=== PATIENT | male | born 1965 | race Caucasian/White ===

== ENCOUNTER 2022-06-23 15:10 | Observation (INO) | payer OTHER ==
[2022-06-23 16:09] LABS: Absolute Neutrophil Ct (ANC) 8.88 x10^3/uL (1.4-6.9); Basophil (Absolute #) 0.07 x10^3/uL (0-0.4); Eosinophil % 2.3 % (0.00-5.0); Eosinophil (Absolute #) 0.27 x10^3/uL (0-0.5); Hematocrit 48.7 % (42-50); Hemoglobin 15.7 g/dL (12.5-18.0); Lymphocytes % 12.9 % (24.0-44.0); Mean Cell Volume 95.3 fL (78-100); Mean Corpuscular Hemoglobin 30.7 pg (26-32); Mean Corpuscular Hgb Concent. 32.2 g/dL (32-36); Mean Platelet Volume 9.7 fL (7.5-11.0); Monocyte (Absolute #) 0.89 x10^3/uL (0.0-1.3); Monocytes % 7.6 % (0.0-12.0); Neutrophil % 76.3 % (36.0-66.0); Platelet Count 268 x10^3/uL (150-450); Red Blood Count 5.11 x10^6/uL (4.1-5.6); Red Cell Distribution Width 12.7 % (11.5-14.0); White Blood Count 11.6 x10^3/uL (4.0-10.5)
[2022-06-23] MEDS ORDERED: Hydromorphone 1 mg/ml Injection IV PRN (16:16)
[2022-06-23 16:19] LABS: ALBUMIN 4.6 g/dL (3.5-5.0); ALKALINE PHOSPHATASE 130 U/L (38-126); ANION GAP 12.5 MEQ/L (5-15); BLOOD UREA NITROGEN 17 mg/dL (9-20); CHLORIDE 98 mmol/L (98-107); Calcium 9.9 mg/dL (8.4-10.2); Carbon Dioxide 31 mmol/L (22-30); Creatinine 1 0.94 mg/dL (0.66-1.25); EST GLOMERULAR FILTRATION RATE > 60.0 ML/MIN; Glucose 102 mg/dL (74-106); Potassium 4.5 mmol/L (3.5-5.1); SGOT/AST 38 U/L (17-59); SGPT/ALT 41 U/L (0-50); SODIUM 136 mmol/L (137-145); Total Protein 9.1 g/dL (6.3-8.2)
[2022-06-23] MEDS ORDERED: TYLENOL 325 MG ONE (16:22)
[2022-06-23] MEDS: TYLENOL 325 MG PO PRN ×2 (16:25→20:12)
--- NOTE | 2022-06-23 18:39 | XRAY ---
Indication: Abscess. Sagittal, coronal, and axial MRI left mid lower leg performed without contrast using T1, T2, and STIR sequences. Cutaneous marker placed over region of interest. Comparison: None Anterior cutaneous marker is seen mid lower leg. There is underlying subcutaneous fluid collection measuring at least 1.8 x 3.8 x 4.4 cm presumed clinically reported abscess. Mild surrounding cutaneous and subcutaneous soft tissue swelling/edema presumed reactive. Lack of contrast precludes further characterization. Deep soft tissues and muscles are negative for focal solid/cystic mass or abnormal fluid collection. No acute fracture, suspicious bony lesions, osseous destructive process, or abnormal bone marrow signal. Impression: Anterior subcutaneous fluid collection with surrounding soft tissue swelling/edema presumed clinically reported abscess. No abnormal bony MRI abnormalities.
[2022-06-23] MEDS: PIPERACILLIN/TAZOBACTAM 3.375 GM in Sodium Chloride 100ML MINI-BAG PLUS 100 ML IV SCH ×2 (18:41→23:11)
[2022-06-23] MEDS: VANCOMYCIN 1.25 GM/250 ML BAG 1.25 GM/250 ML PIGGYBACK IV SCH (19:44)
[2022-06-23] MEDS: Zofran 4 MG/2 ML VIAL IV PRN (21:43)
--- NOTE | 2022-06-23 21:57 | PCM.HP ---
History of Present Illness - Chief Complaint Chief Complaint: LEFT LEG CELLULITIS History of Present Illness: is a 57 year old male patient of mine seen in clinic today for LLE cellulitis with abcess formation. Patient was referred to Podiatry Dr Brock who plans I&D proceedure in the morning. Over the patient was started on Bactrim then Clindamycin.States no improvement on Bactrim but started to improve on Clindamycin.Denies injury. Works farming row crops and cattle. PMHx - HTN ,Obesity. - Review of Systems Constitutional: No Symptoms Eyes: No Symptoms Ears, Nose, & Throat: No Symptoms Respiratory: No Symptoms Cardiac: No Symptoms Abdominal/Gastrointestinal: No Symptoms Genitourinary Symptoms: No Symptoms Musculoskeletal: Other (LLE redness and pain) Skin: Cellulitis (LLE) Neurological: No Symptoms Psychological: No Symptoms Endocrine: No Symptoms Hematologic/Lymphatic: No Symptoms Medications & Allergies Home Medications: Home Medication List Aspirin EC 81 mg [Ecotrin 81 mg] 81 mg PO DAILY 06/23/22 [History Confirmed 06/23/22] Lisinopril 20 mg [Zestril 20 MG] 20 mg PO BID 06/23/22 [History Confirmed 06/23/22] Allergies/Adverse Reactions: Allergies Allergy/AdvReac Type Severity Reaction Status Date / Time No Known Allergies Allergy Verified 06/23/22 23:19 - Past Medical History Neurological History: No Pertinent History ENT History: Cataracts Cardiac History: No Pertinent History Respiratory History: No Pertinent History Endocrine Medical History: No Pertinent History Musculoskelatal History: No Pertinent History GI Medical History: No Pertinent History History: No Pertinent History Pyscho-Social History: No Pertinent History Male Reproductive Disorders: No Pertinent History - Past Surgical History Past Surgical History: Yes Neuro Surgical History: No Pertinent History Cardiac History: No Pertinent History Respiratory Surgery: No Pertinent History GI Surgical History: No Pertinent History Genitourinary Surgical Hx: No Pertinent History Musculskeletal Surgical Hx: No Pertinent History Male Surgical History: No Pertinent History Other Surgical History: MUSCLE REATTCHMENT SX LEFT ARM 2001 - Social History Smoking Status: Never smoker Exposure to second hand smoke: No Alcohol: None Drug Use: none - Physical Exam Vital Signs: Vital Signs - 24 hr Temp Pulse Resp BP Pulse Ox 06/23/22 19:34 99.3 F 103 H 19 144/68 93 L 06/23/22 16:00 97.8 F 87 185/93 96 06/23/22 15:28 97.8 F 87 185/93 96 06/23/22 15:19 97.8 F 87 19 185/ 96 General Appearance: mild distress (LLE pain) Neurologic Exam: alert, oriented x 3, cooperative, normal mood/affect Eye Exam: eyes nml inspection Ears, Nose, Throat Exam: normal ENT inspection Neck Exam: normal inspection Respiratory Exam: normal breath sounds Gastrointestinal/Abdomen Exam: soft, No tenderness Rectal Exam: not done Back Exam: normal inspection Extremity Exam: tenderness (LLE mid tibia with redness and heat with soft fluctuant center,no drainage-see podiatry note) Skin Exam: warm, dry Wound Assessment: Skin/Wound Assessment Wound/Incision Assessment Start: 06/23/22 16:11 Text: Status: Active Freq: Q6H Protocol: Document 06/23/22 16:11 RB (Rec: 06/23/22 17:00 RB [id number]) Wound/Incision Assessment Left Lower Knee Wound Assessment Admission Wound Stage Non Pressure Wound Dressing Status Dry & Intact Drainage Amount None Drainage Odor None/Absent Secondary Dressing Elastic Bandage Comment WRAPPED PER LUCIANO PRIOR TO ADMISSION Wound Photo Photo Taken No Results - Labs Lab/Micro Results: Lab Results-Last 24 Hours 06/23/22 06/23/22 06/23/22 Range/Units 13:50 13:50 15:35 WBC 11.6 H (4.0-10.5) x10^3/uL RBC 5.11 (4.1-5.6) x10^6/uL Hgb 15.7 (12.5-18.0) g/dL Hct 48.7 (42-50) % MCV 95.3 (78-100) fL MCH 30.7 (26-32) pg MCHC 32.2 (32-36) g/dL RDW 12.7 (11.5-14.0) % Plt Count 268 (150-450) x10^3/uL MPV 9.7 (7.5-11.0) fL Gran % 76.3 H (36.0-66.0) % Immature Gran % (Auto) 0.3 (0.00-0.4) % Nucleat RBC Rel Count 0.0 (0.00-0.1) % Eos # (Auto) 0.27 (0-0.5) x10^3/uL Immature Gran # (Auto) 0.03 (0.00-0.03) x10^3u/L Absolute Lymphs (auto) 1.50 (1.0-4.6) x10^3/uL Absolute Monos (auto) 0.89 (0.0-1.3) x10^3/uL Absolute Nucleated RBC 0.00 (0.00-0.01) x10^3u/L Lymphocytes % 12.9 L (24.0-44.0) % Monocytes % 7.6 (0.0-12.0) % Eosinophils % 2.3 (0.00-5.0) % Basophils % 0.6 (0.0-0.4) % Absolute Granulocytes 8.88 H (1.4-6.9) x10^3/uL Basophils # 0.07 (0-0.4) x10^3/uL ESR 41 H (0-15) mm/hr Sodium 136 L (137-145) mmol/L Potassium 4.5 (3.5-5.1) mmol/L Chloride 98 (98-107) mmol/L Carbon Dioxide 31 H (22-30) mmol/L Anion Gap 12.5 (5-15) MEQ/L BUN 17 (9-20) mg/dL Creatinine 0.94 (0.66-1.25) mg/dL Estimated GFR > 60.0 ML/MIN Glucose 102 (74-106) mg/dL Lactic Acid (0.4-2.0) Calcium 9.9 (8.4-10.2) mg/dL Total Bilirubin 0.80 (0.2-1.3) mg/dL AST 38 (17-59) U/L ALT 41 (0-50) U/L Alkaline Phosphatase 130 H (38-126) U/L Serum Total Protein 9.1 H (6.3-8.2) g/dL Albumin 4.6 (3.5-5.0) g/dL // Range/Units 15:50 WBC (4.0-10.5) x10^3/uL RBC (4.1-5.6) x10^6/uL Hgb (12.5-18.0) g/dL Hct (42-50) % MCV (78-100) fL MCH (26-32) pg MCHC (32-36) g/dL RDW (11.5-14.0) % Plt Count (150-450) x10^3/uL MPV (7.5-11.0) fL Gran % (36.0-66.0) % Immature Gran % (Auto) (0.00-0.4) % Nucleat RBC Rel Count (0.00-0.1) % Eos # (Auto) (0-0.5) x10^3/uL Immature Gran # (Auto) (0.00-0.03) x10^3u/L Absolute Lymphs (auto) (1.0-4.6) x10^3/uL Absolute Monos (auto) (0.0-1.3) x10^3/uL Absolute Nucleated RBC (0.00-0.01) x10^3u/L Lymphocytes % (24.0-44.0) % Monocytes % (0.0-12.0) % Eosinophils % (0.00-5.0) % Basophils % (0.0-0.4) % Absolute Granulocytes (1.4-6.9) x10^3/uL Basophils # (0-0.4) x10^3/uL ESR (0-15) mm/hr Sodium (137-145) mmol/L Potassium (3.5-5.1) mmol/L Chloride (98-107) mmol/L Carbon Dioxide (22-30) mmol/L Anion Gap (5-15) MEQ/L BUN (9-20) mg/dL Creatinine (0.66-1.25) mg/dL Estimated GFR ML/MIN Glucose (74-106) mg/dL Lactic Acid 1.6 (0.4-2.0) Calcium (8.4-10.2) mg/dL Total Bilirubin (0.2-1.3) mg/dL AST (17-59) U/L ALT (0-50) U/L Alkaline Phosphatase (38-126) U/L Serum Total Protein (6.3-8.2) g/dL Albumin (3.5-5.0) g/dL - Radiology Impressions Radiology Exams & Impressions: Radiology Procedures Category Date Time Status MRI LOWER EXT W/O CONTRAST [MRI] Stat Exams 06/23/22 15:36 Completed Assessment/Plan (1) Cellulitis of leg without foot, left Current Visit: Yes Status: Acute Code(s): L03.116 - CELLULITIS OF LEFT LOWER LIMB (2) HTN (hypertension) Current Visit: Yes Status: Chronic Code(s): I10 - ESSENTIAL (PRIMARY) HYPERTENSION
[2022-06-23] MEDS: Zestril 20 MG PO SCH (22:20)
[2022-06-24] MEDS: TYLENOL 325 MG PO PRN ×3 (00:17→11:47)
[2022-06-24] MEDS: VANCOMYCIN 1.25 GM/250 ML BAG 1.25 GM/250 ML PIGGYBACK IV SCH ×3 (04:08→19:52)
[2022-06-24] MEDS: Zofran 4 MG/2 ML VIAL IV PRN (04:09)
[2022-06-24] MEDS: PIPERACILLIN/TAZOBACTAM 3.375 GM in Sodium Chloride 100ML MINI-BAG PLUS 100 ML IV SCH ×4 (05:40→23:30)
[2022-06-24 08:43] LABS: ANION GAP 10.2 MEQ/L (5-15); BLOOD UREA NITROGEN 23 mg/dL (9-20); CHLORIDE 99 mmol/L (98-107); Calcium 8.6 mg/dL (8.4-10.2); Carbon Dioxide 28 mmol/L (22-30); Creatinine 1 1.14 mg/dL (0.66-1.25); EST GLOMERULAR FILTRATION RATE > 60.0 ML/MIN; Glucose 108 mg/dL (74-106); Potassium 4.4 mmol/L (3.5-5.1); SODIUM 133 mmol/L (137-145)
[2022-06-24] MEDS ORDERED: TENIVAC VIAL IM ONE (09:32)
[2022-06-24] MEDS ORDERED: FLUZONE QUAD 2022-2023 SYRINGE IM ONE (10:00)
[2022-06-24] MEDS: Zestril 20 MG PO SCH ×2 (11:46→22:14)
[2022-06-24] MEDS: Sodium Chloride 0.9% 1000 ML 1,000 ML IV SCH (11:47)
[2022-06-24] MEDS ORDERED: Zofran 4 MG/2 ML VIAL ONE ×2 (15:28→15:34)
[2022-06-24] MEDS ORDERED: Xopenex 1.25 MG/0.5 ML UD NEBULE IH SCH (15:30)
[2022-06-24] MEDS ORDERED: SOD CITRATE-CITRIC ACID SOLN PO ONE (15:30)
[2022-06-24] MEDS ORDERED: Lactated Ringers 1,000 ML IV SCH (15:30)
[2022-06-24] MEDS ORDERED: Versed 2 MG/2 ML Injection IV SCH (15:30)
[2022-06-24] MEDS ORDERED: Transderm Scop 1.5MG Patch TOP PRN (15:30)
[2022-06-24] MEDS ORDERED: Pepcid 20 MG VIAL IV SCH (15:30)
[2022-06-24] MEDS ORDERED: Reglan 10 MG/2 ML IV SCH (15:30)
[2022-06-24] MEDS ORDERED: SUBLIMAZE 100 MCG/2 ML ONE ×2 (15:33→17:16)
[2022-06-24] MEDS ORDERED: Decadron 4 MG INJ ONE (15:34)
[2022-06-24] MEDS ORDERED: TORAdol 30 mg Injection ONE (15:34)
[2022-06-24] MEDS ORDERED: DIPRIVAN 200 MG/20 ML IV ONE ×2 (15:36→15:47)
[2022-06-24] MEDS ORDERED: Quelicin Fliptop 200 MG/10 ML ONE (15:39)
[2022-06-24] MEDS ORDERED: Pre-Attached Lta Kit TP ONE (15:51)
[2022-06-24] MEDS ORDERED: Versed 2 MG/2 ML Injection ONE (15:56)
[2022-06-24] MEDS ORDERED: Ephedrine Sulfate 50 MG/ML ONE (16:15)
[2022-06-24] MEDS ORDERED: PHENYLEPHRINE HCL ONE (16:17)
--- NOTE | 2022-06-24 17:05 | PCM.NOTE ---
Podiatry Post-Op Plan Podiatry Post-Op Plan: Podiatry Post-Op Plan Post-operative plan is as follows: ANTIBIOTICS: Vancomycin 1.25g q 12 hours zosyn 3.375 g q 8 hours for now. Preliminary cultures demonstrating Gram positive bacteria will await culture and sensitivity PAIN CONTROL: Rosebud 5/325mg q4h moderate pain. Dilaudad .5 q4h severe pain. VTE PROPHYLAXIS: 325 mg PO aspirin daily. DRESSINGS: Dressing to remain clean and dry. Reinforce with Kerlix/ALEJANDRO as necessary. ACTIVITY: Full weight bearing to tolerance. elevate extremities THERAPIES: Incentive Spirometry. PLACEMENT: d/c to home
[2022-06-24] MEDS: NORCO 7.5/325 MG TAB PO PRN ×2 (18:35→23:21)
[2022-06-25] MEDS: VANCOMYCIN 1.25 GM/250 ML BAG 1.25 GM/250 ML PIGGYBACK IV SCH ×3 (04:57→19:53)
[2022-06-25] MEDS: PIPERACILLIN/TAZOBACTAM 3.375 GM in Sodium Chloride 100ML MINI-BAG PLUS 100 ML IV SCH ×2 (05:58→06:25)
[2022-06-25] MEDS: NORCO 7.5/325 MG TAB PO PRN ×2 (07:54→20:05)
[2022-06-25] MEDS ORDERED: GENTAMICIN SULFATE 0.1% CREAM TP SCH (08:30)
--- NOTE | 2022-06-25 09:10 | OP ---
SURGERY DATE/TIME: 06/24/2022 1558 PREOPERATIVE DIAGNOSES: 1) Abscess left leg. 2) Pain left leg. POSTOPERATIVE DIAGNOSES: 1) Abscess left leg. 2) Pain left leg. PROCEDURE: Incision and drainage with bone debridement to the level of tibia left ankle. SURGEON: James Mckinnon DPM. NEEDLE LOOM TENDER: None. ANESTHESIA: General. HEMOSTASIS: Pressure dressing. ESTIMATED BLOOD LOSS: Approximately 10 cc. MATERIALS: 1,000 ml Bactisure, 3-0 Nylon and 0.25 inch Iodoform packing. INJECTABLES: See anesthesia report for details. INDICATION FOR SURGERY: Ramesh is a very pleasant 57-year-old man who presented to my clinic yesterday with concerns of cellulitic changes as well as abscess developing to the anterior aspect of the left leg. The patient indicated the symptoms started approximately a week ago and failed outpatient therapy. The patient remembers very little about the start of this however he does indicate that he had been bitten by a spider within the last week which may have started this whole process. In this case a culture was obtained with a simple I&D yesterday in my office which demonstrated some growth of gram-positive bacteria. Since then the patient has been admitted to the floor and started on antibiotics Vancomycin and Zosyn and is planned for incision and drainage today. MRI was obtained yesterday demonstrating a lesion approximately 4 x 3 x 2 cm as a fluid filled collection that did not go past the muscle layer. I agreed with the radiologist read at that time. It is with that we decided to proceed with further evacuation of the abscess of the anterior aspect of the left leg. The patient understands all risks, complications and benefits of surgical intervention including but not limited to nonskin healing, delayed skin healing, possibility of demarcation and need for possible grafting. Possibility of continued infection and the possibility of need for surgical intervention at a later date. In this particular instance, this will be a staged procedure as I am leaving the incision open today to allow for evacuation of the abscess. The patient understands that he will return in the not too distant future for a repeat incision and drainage and potential closure of the wound. No guarantees were provided as to the outcome. Plenty of time was allowed for the patient to ask questions which were answered to the patient's apparent satisfaction. It is with that we decided to proceed. DESCRIPTION OF PROCEDURE AND FINDINGS: The patient is brought into the OR and placed on the OR table in the supine position. At this time adequate anesthesia was administered until the patient was sedate d. At this time, the left lower extremity was prepped and draped and lowered onto the surgical field. At this time attention was directed to the abscess where a significant amount of fluctuance extending approximately 6 cm from a central aspect where the simple I&D was performed yesterday. At this time a 15 blade was utilized to make an incision which was then deepened utilizing blunt dissection. Copious amounts of purulence was expressed from this site estimated to be approximately 20 cc of purulence along with thickened white tissue similar to that as scar tissue. Deep cultures were obtained at this time. Bactisure 1,000 ml was then utilized to lavage the site of infection. Any nonviable tissue or necrotic tissue was removed from the site of infection at this time. Following the Bactisure 3,000 ml bag of sterile saline utilized to flush the surgical site. 3-0 Nylon then was utilized to coapt the skin margins proximally and distally leaving the central aspect open. 0.25 inch Iodoform packing was then placed into the deficit packing this area lightly so as not to put excessive pressure on the healing skin. A dressing consisting of Betadine, Adaptic, 4x4, Kerlix and ALEJANDRO were then applied to the left lower extremity. The patient was returned to the postoperative anesthesia care unit with vital signs stable and vascular status intact.
[2022-06-25] MEDS: ECOTRIN 81 MG PO SCH (09:31)
[2022-06-25] MEDS: Zestril 20 MG PO SCH ×2 (09:32→19:53)
[2022-06-25] MEDS: GENTAMICIN SULFATE 0.1% CREAM TP SCH ×3 (09:34→20:06)
[2022-06-25] MEDS ORDERED: Zestril 20 MG PO SCH (10:00)
[2022-06-25] MEDS ORDERED: TROUGH DRUG LEVELS IJ ONE (11:30)
[2022-06-25] MEDS: Sodium Chloride 0.9% 1000 ML 1,000 ML IV SCH (15:36)
--- NOTE | 2022-06-25 16:34 | PCM.NOTE ---
Date and Time: 06/25/22 162 Subjective Assessment: Seen at bedside this AM. Pain controlled. Patient admits to feeling significantly better. [place] any constitutional symptoms of infection. He denies any other pedal complaints at this time Physical Exam - Narrative Narrative Physical Exam: Podiatry Physical Exam Incision to anterior aspect of left tibial. Some demarcation of medial aspect of incision site. Some nonviable tissue and some soft tissue necrosis. Residual's indications of infection at this time are not apparent no purulence noted. Packing pulled and culture obtained OBJECTIVE DATA Vital Signs: Vital Signs - 24 hr Temp Pulse Resp BP Pulse Ox 06/25/22 11:39 96.7 F 64 16 130/64 98 06/25/22 07:30 97.5 F 68 17 140/65 93 L 06/25/22 07:24 68 14 93 L 06/25/22 04:00 97.9 F 71 18 114/66 93 L 06/24/22 23:00 97.3 F 77 18 111/61 94 L 06/24/22 21:15 96.9 F 78 18 122/58 96 06/24/22 20:15 97.1 F 83 19 128/59 95 06/24/22 19:23 91 H 18 98 06/24/22 19:15 97.5 F 90 18 120/59 98 06/24/22 18:45 97.8 F 93 H 20 142/62 95 06/24/22 18:15 98.2 F 91 H 18 136/66 96 06/24/22 17:50 97.8 F 96 H 17 136/64 96 Pain Assessment - Last Documented Pain Intensity 1 Pain Scale Used 0-10 Pain Scale Intake and Output: Intake & Output 06/23/22 06/24/22 06/25/22 06/26/22 11:59 11:59 11:59 11:59 Intake Total 720 1360 Balance 720 1360 Weight 139.5 kg Lab Results: Lab Results-Last 24 Hours 06/23/22 06/25/22 06/25/22 Range/Units 13:50 09:41 11:40 C-Reactive Prot, Quant 121 H (0-10) mg/L Nasal Screen MRSA (PCR) NOT DETECTED Vancomycin Trough 12.91 (10-20) ug/mL Radiology Exams: Radiology Procedures Category Date Time Status MRI LOWER EXT W/O CONTRAST [MRI] Stat Exams 06/23/22 15:36 Completed Multi-Disciplinary Progress Notes: Multi-Disciplinary Progress Notes 06/25/22 12:09 Case Management Note by Triny Olivares TS/W DR. MYLES- [facility] PLANS FOR OTPT ANTIBIOTICS AFTER DC- HOPEFUL FOR THURSDAY. NEW ORDER FOR PICC LINE Initialized on 06/25/22 12:09 - END OF NOTE 06/25/22 11:50 Case Management Note by Triny Olivares REVIEWED CHART- UNSURE PLAN AT DC AT THIS TIME. S/W PATIENT- HE REPORTS HE WILL HAVE TRANSPORTATION FOR OUTPT INFUSIONS IF ORDERED BUT WOULD PREFER TO HAVE THEM SET UP AT [facility]. WILL. CONTINUE TO MONITOR CHART CLOSER TO TIME OF DC FOR NEEDS Initialized on 06/25/22 11:50 - END OF NOTE Assessment/Plan (1) Abscess of left lower extremity Current Visit: No Status: Acute Code(s): L02.416 - CUTANEOUS ABSCESS OF LEFT LOWER LIMB (2) Cellulitis of leg without foot, left Current Visit: Yes Status: Acute Assessment & Plan: Patient postop day 1 Patient progressing without significant complication at this time. Subjectively he admits to improvement in symptomatology. Cultures demonstrating MRSA Contact precautions ordered Decolonization protocol ordered Dressings changed and packing pulled and repacked New cultures obtained at this time Discontinue Zosyn continue vancomycin pharmacy to dose Pain control as prescribed Will follow closely Code(s): L03.116 - CELLULITIS OF LEFT LOWER LIMB (3) Venous (peripheral) insufficiency Current Visit: Yes Status: Acute Code(s): I87.2 - VENOUS INSUFFICIENCY (CHRONIC) (PERIPHERAL) (4) Localized edema Current Visit: Yes Status: Acute Code(s): R60.0 - LOCALIZED EDEMA
[2022-06-26] MEDS: VANCOMYCIN 1.25 GM/250 ML BAG 1.25 GM/250 ML PIGGYBACK IV SCH ×3 (03:52→21:29)
[2022-06-26] MEDS: GENTAMICIN SULFATE 0.1% CREAM TP SCH ×3 (06:29→21:29)
[2022-06-26] MEDS: ECOTRIN 81 MG PO SCH (09:30)
[2022-06-26] MEDS: Zestril 20 MG PO SCH ×2 (09:30→21:29)
--- NOTE | 2022-06-26 12:55 | XRAY ---
Exam: AP upright portable chest film from 06/26/2022. Comparison: AP upright portable chest film from 06/19/2021. Indication: PICC line placement. Findings: Right-sided PICC line is seen with the tip extending inferiorly within the SVC just above the right atrium. I see no pneumothorax. The heart size appears within normal limits. There is again noted be moderate elevation of the right hemidiaphragm. No air space infiltrates, vascular congestion, pneumothorax, or pleural fluid is seen. There is minimal pleural density at the lateral aspect of each lung base which could relate to pleural thickening or pleural fat. Exact etiology is unclear. No acute osseous process is seen. I believe there are some mild degenerative changes of the glenohumeral joint of the right shoulder representing no significant change. Impression: 1. Right-sided PICC line appears in satisfactory position with the tip pointing inferiorly within the distal SVC just above the right atrium. 2. Chronic moderate elevation of the right hemidiaphragm. 3. There appears be a mild focal pleural thickening at the lateral right lung base and the lateral left lung base of unclear significance. See above. I see no definite air space infiltrates.
[2022-06-26 13:50] LABS: INR 1.07 (0.8-3.0); PROTIME 11.3 SECONDS (9.4-12.5); PTT 25.3 SECONDS (25.1-36.5)
[2022-06-26] MEDS: NORCO 7.5/325 MG TAB PO PRN ×2 (14:26→23:52)
[2022-06-26] MEDS: Sodium Chloride 0.9% 1000 ML 1,000 ML IV SCH (17:56)
--- NOTE | 2022-06-26 18:14 | PCM.NOTE ---
Date and Time: 06/26/221810 Subjective Assessment: Patient had pic line placed today and will have LLE surgical wound closed tomorrow in preparation for discharge home on IV antibiotics. Objective Exam General Appearance: no apparent distress Neurologic Exam: alert, oriented x 3, cooperative Wound Assessment: Skin/Wound Assessment Wound/Incision Assessment Start: 06/23/22 16:11 Text: Status: Active Freq: Q6H Protocol: Document 06/26/22 14:00 JESSE (Rec: 06/26/22 14:49 JESSE [id number]) Wound/Incision Assessment Left Lower Knee Wound Assessment Shift Assessment Wound Type cellulitis/surgical Wound Stage Non Pressure Wound Dressing Status Dry & Intact Secondary Dressing Elastic Bandage Comment LEFT LOWER LEG, DRESSING CLEAN , DRY AND INTACT, CHANGED PER DR. WOLF'S NURSE Wound Photo Photo Taken No Extremity Exam: other (LLE dressed-see Podiatry notes) OBJECTIVE DATA Vital Signs: Vital Signs - 24 hr Temp Pulse Resp BP Pulse Ox 06/26/22 16:00 98.1 F 68 16 139/65 95 06/26/22 12:00 97.6 F 69 16 136/79 97 06/26/22 07:12 93 L 06/26/22 07:04 97.9 F 63 16 121/59 97 06/26/22 03:50 98.3 F 64 18 123/62 96 06/25/22 23:46 97.4 F 67 19 120/60 96 06/25/22 20:07 92 L 06/25/22 20:00 98.2 F 71 18 133/60 96 Pain Assessment - Last Documented Pain Intensity 4 Pain Scale Used 0-10 Pain Scale Intake and Output: Intake & Output 06/24/22 06/25/22 06/26/22 06/27/22 11:59 11:59 11:59 11:59 Intake Total 720 1360 1640 480 Balance 720 1360 1640 480 Weight 139.5 kg Lab Results: Lab Results-Last 24 Hours 06/26/22 Range/Units 13:28 PT 11.3 (9.4-12.5) SECONDS INR 1.07 (0.8-3.0) APTT 25.3 (25.1-36.5) SECONDS Radiology Exams: Radiology Procedures Category Date Time Status CHEST 1 VIEW (PORTABLE) Stat Exams 06/26/22 11:34 Completed Multi-Disciplinary Progress Notes: Multi-Disciplinary Progress Notes 06/26/22 09:12 Case Management Note by Triny Olivares PLAN FOR PICC LINE PLACEMENT TODAY, BACK TO OR TOMORROW. WILL NEED TO SET UP OTPT INFUSIONS AT TIME OF DC Initialized on 06/26/22 09:12 - END OF NOTE Assessment/Plan (1) Cellulitis of leg without foot, left Current Visit: Yes Status: Acute Code(s): L03.116 - CELLULITIS OF LEFT LOWER LIMB (2) HTN (hypertension) Current Visit: Yes Status: Chronic Code(s): I10 - ESSENTIAL (PRIMARY) HYPERTENSION (3) Abscess of leg without foot, left Current Visit: Yes Status: Resolved Assessment & Plan: S/P I&D Code(s): L02.416 - CUTANEOUS ABSCESS OF LEFT LOWER LIMB
[2022-06-27] MEDS: VANCOMYCIN 1.25 GM/250 ML BAG 1.25 GM/250 ML PIGGYBACK IV SCH ×2 (04:55→09:24)
[2022-06-27] MEDS: GENTAMICIN SULFATE 0.1% CREAM TP SCH ×2 (04:56→15:33)
[2022-06-27 07:15] VITALS: O2SAT 95
[2022-06-27] MEDS: NORCO 7.5/325 MG TAB PO PRN ×2 (07:36→17:56)
[2022-06-27] MEDS ORDERED: XYLOCAINE 1% HCL 20 ML MDV ONE (08:37)
[2022-06-27] MEDS ORDERED: Marcaine Mpf 0.5% Vial 30 Ml ONE (08:38)
[2022-06-27] MEDS ORDERED: VANCOMYCIN 1.5 GRAM/300 ML BAG 1.5 GM/300 ML PIGGYBACK IV SCH (09:15)
[2022-06-27] MEDS: ECOTRIN 81 MG PO SCH (09:24)
[2022-06-27] MEDS: Zestril 20 MG PO SCH (09:25)
[2022-06-27] MEDS ORDERED: Lactated Ringers 1,000 ML IV SCH (09:30)
[2022-06-27 11:01] LABS: Absolute Neutrophil Ct (ANC) 6.28 x10^3/uL (1.4-6.9); Basophil (Absolute #) 0.08 x10^3/uL (0-0.4); Eosinophil % 4.5 % (0.00-5.0); Eosinophil (Absolute #) 0.41 x10^3/uL (0-0.5); Hematocrit 46.3 % (42-50); Hemoglobin 14.5 g/dL (12.5-18.0); Lymphocytes % 17.4 % (24.0-44.0); Mean Cell Volume 98.5 fL (78-100); Mean Corpuscular Hemoglobin 30.9 pg (26-32); Mean Corpuscular Hgb Concent. 31.3 g/dL (32-36); Mean Platelet Volume 9.3 fL (7.5-11.0); Monocyte (Absolute #) 0.74 x10^3/uL (0.0-1.3); Monocytes % 8.1 % (0.0-12.0); Neutrophil % 68.3 % (36.0-66.0); Platelet Count 255 x10^3/uL (150-450); Red Cell Distribution Width 12.5 % (11.5-14.0); White Blood Count 9.2 x10^3/uL (4.0-10.5)
[2022-06-27 11:06] LABS: ANION GAP 9.8 MEQ/L (5-15); BLOOD UREA NITROGEN 21 mg/dL (9-20); CHLORIDE 103 mmol/L (98-107); Calcium 8.7 mg/dL (8.4-10.2); Carbon Dioxide 26 mmol/L (22-30); Creatinine 1 0.82 mg/dL (0.66-1.25); EST GLOMERULAR FILTRATION RATE > 60.0 ML/MIN; Glucose 91 mg/dL (74-106); Potassium 4.3 mmol/L (3.5-5.1); SODIUM 135 mmol/L (137-145)
[2022-06-27] MEDS ORDERED: Transderm Scop 1.5MG Patch TOP SCH (11:15)
[2022-06-27] MEDS ORDERED: SUBLIMAZE 100 MCG/2 ML ONE (12:03)
[2022-06-27] MEDS ORDERED: DIPRIVAN 200 MG/20 ML IV ONE (12:03)
[2022-06-27] MEDS ORDERED: Zofran 4 MG/2 ML VIAL ONE (12:03)
[2022-06-27] MEDS ORDERED: Xylocaine-Mpf 2% 5 Ml Vial ONE (12:03)
[2022-06-27] MEDS ORDERED: Decadron 4 MG INJ ONE (12:03)
[2022-06-27] MEDS ORDERED: Versed 2 MG/2 ML Injection ONE (12:05)
[2022-06-27] MEDS ORDERED: Ephedrine Sulfate 50 MG/ML ONE (13:22)
[2022-06-27] MEDS ORDERED: MORPHINE SULFATE 2 MG INJ ONE ×2 (14:17→14:20)
--- NOTE | 2022-06-27 15:06 | OP ---
SURGERY DATE/TIME: 06/27/2022 1259 PREOPERATIVE DIAGNOSES: 1) Methicillin-resistant Staphylococcus aureus infection left leg. 2) Abscess plus cellulitis. 3) Left leg pain. POSTOPERATIVE DIAGNOSES: 1) Methicillin-resistant Staphylococcus aureus infection left leg. 2) Abscess plus cellulitis. 3) Left leg pain. PROCEDURE: Repeat incision and drainage with bone debridement as well as delayed primary closure. SURGEON: James Mckinnon DPM. EMPLOYEE COMMUNICATIONS MANAGER: None. ANESTHESIA: General. HEMOSTASIS: Pressure dressing. ESTIMATED BLOOD LOSS: Less than 10 cc. MATERIALS: Suture guard, 2-0 Nylon and 3-0 Nylon. INJECTABLES: See anesthesia report for details. INDICATION FOR SURGERY: Ramesh is a very pleasant 57-year-old man who was seen in my office on Thursday this week for concerns of an abscess with cellulitis. He has been attempted to be managed by a family practice practitioner who treated him with oral antibiotics with no success. An abscess was beginning to form underneath the surface of the skin and it was worsening at that time. The patient had a simple I&D performed in the office and cultures were obtained. The patient was taken to the OR the next morning demonstrating a significant abscess to the left lower extremity. On MRI this measured approximately 5 x 3 x 2 cm. From that standpoint we decided to proceed and an incision and drainage was carried out. This was carried out to the level of the periosteum of the tibia. Small amount of the periosteum was disturbed which a bone debridement took place as well as an open incision and drainage on previous visit. Today, the patient is doing significantly better from a clinical and a medical standpoint. The patient's cellulitis is all but resolved and the abscess has been eradicated per clinical examination. The patient has been started on IV antibiotics consisting of Vancomycin in the hospital. However on discharge will be transferred to [facility]. The patient is eager for discharge at this time and I am willing to proceed with a primary closure due to his progress at this time. The patient understands all risks, complications and benefits of surgical intervention at this time. The patient understands there are no guarantee to closure at this time of the wound without closing residual infection in the site. However at this time, clinically he appears significantly better and without any significant signs of infection clinically. It is with that we proceed. DESCRIPTION OF PROCEDURE AND FINDINGS: The patient is brought into the OR and placed on the OR table in the supine position. At this time general anesthesia was administered. The left lower extremity was prepped, draped and lowered onto the surgical field. At this time sutures were removed from the site. A curette was utilized to debride the soft tissue at the medial and lateral aspects of the wound. Any nonviable tissue was removed from the surgical field. A 15 blade was utilized to incise the edges and healthy bleeding was assessed. At this time a 3 liter bag of pulse lavage was then utilized to flush the surgical site. At this time the wound was then inspected once again and deemed to be clean of any residual infection or necrotic tissue. The small amount of bone that was exposed through the periosteum was debrided utilizing a curette. At this time iodine was soaked into the wound and the remaining 2 liters of the sterile saline was utilized to lavage the surgical site. At this time a suture guard was utilized to coapt the skin edges in a vertical mattress-type fashion. Following this 2-0 Nylon was utilized to coapt the surgical incision in a horizontal mattress-type fashion with everted skin edges. 3-0 Nylon was then utilized to coapt the skin edges alternating in a simple interrupted fashion. Following this, a dressing consisting of Betadine, Adaptic, 4x4, Kerlix and ALEJANDRO was then applied to the left lower extremity. The patient then was reversed from anesthesia and returned to the postoperative anesthesia care unit with vital signs stable and vascular status intact. The patient handled the anesthesia as well as the procedure without significant complication. Postoperative orders as indicated in the patient's discharge chart.
[2022-06-27 17:11] VITALS: BP 149/72; PULSE 71
== END 2022-06-27 18:15 | disposition home or self-care (01) ==
LOC: MED SURG 15:10
PROVIDERS: ADMIT Family Medicine; ATTEND Family Medicine
DX: L03.116 Cellulitis of left lower limb (principal); L02.416 Cutaneous abscess of left lower limb; M79.605 Pain in left leg; A49.02 Methicillin resistant Staphylococcus aureus infection, unspecified site; I87.2 Venous insufficiency (chronic) (peripheral); I10 Essential (primary) hypertension; R60.0 Localized edema; Z79.899 Other long term (current) drug therapy; Z20.828 Contact with and (suspected) exposure to other viral communicable diseases; Z12.5 Encounter for screening for malignant neoplasm of prostate
CPT/HCPCS: 13160; 27603; 27607; 29581; 36415; 36573; 71045; 73718; 80048; 80053; 80202; 82550; 83036; 83605; 84443; 85025; 85610; 85652; 85730; 86140; 87070; 87075; 87077; 87116; 87186; 87206; 87641; 90471; 93005; 94640; 94760; 97161; 97165; G0103; G0378; 90714; 99140; A6260; J0330; J1100; J1170; J1885; J2250; J2270; J2370; J2405; J2704; J3010; A9270-GY; J3370

== ENCOUNTER 2024-05-12 09:46 | Day surgery (SDC) | payer OTHER ==
--- NOTE | 2024-05-11 13:54 | HP ---
HISTORY AND PHYSICAL HISTORY OF PRESENT ILLNESS: The patient is a 59-year-old, presents with no colonoscopy to date. He has no colon issues at this time. No colon cancer in the family either. PAST MEDICAL HISTORY: Hypertension. HOME MEDICATIONS: Lisinopril, aspirin. ALLERGIES: Negative. PAST SURGICAL HISTORY: Left biceps surgery, left lower leg debridement. SOCIAL HISTORY: Negative. FAMILY HISTORY: Myasthenia gravis. REVIEW OF SYSTEMS: CONSTITUTIONAL: Denies fever or chills. CHEST: Denies shortness of breath. CARDIOVASCULAR: Denies chest pain. ABDOMEN: Denies abdominal pain. PHYSICAL EXAMINATION: GENERAL: No acute distress. CARDIOVASCULAR: Regular rate and rhythm. RESPIRATORY: Nonlabored. No shortness of breath. ABDOMEN: Soft. IMPRESSION: Screening. PLAN: Colonoscopy with Dr. Michael Borjas. This report was dictated for Dr. Borjas by Beverly Kim NP.
[2024-05-12] MEDS ORDERED: Lactated Ringers 1,000 ML IV ONE (09:57)
[2024-05-12] MEDS: Lactated Ringers 1,000 ML IV SCH (10:01)
[2024-05-12 10:02] VITALS: RESP 18
[2024-05-12] MEDS ORDERED: DIPRIVAN 200 MG/20 ML IV ONE ×2 (13:37→13:48)
[2024-05-12] MEDS ORDERED: Xylocaine-Mpf 2% 5 Ml Vial ONE (13:37)
[2024-05-12] MEDS ORDERED: SUBLIMAZE 100 MCG/2 ML ONE (13:45)
[2024-05-12 14:19] VITALS: TEMP 97.2; O2SAT 94
[2024-05-12 14:30] VITALS: BP 136/78; PULSE 66
--- NOTE | 2024-05-15 21:28 | OP ---
SURGERY DATE/TIME: 05/12/2024 [id number] PREOPERATIVE DIAGNOSIS: Screening. POSTOPERATIVE DIAGNOSIS: Screening. PROCEDURE: Colonoscopy completed to cecum. BOWEL PREP: Okay, not excellent. FINDINGS: Basically normal. Moderate internal hemorrhoids. Anticipate followup in 5 years. SURGEON: Michael Borjas MD. INDICATIONS: Patient presents for a 5-year screening. DESCRIPTION OF PROCEDURE AND FINDINGS: Patient was taken to endoscopy. Left lateral decubitus position. Anal digital examination was satisfactory. Tone was satisfactory. Prostate satisfactory. Scope advanced to the cecum. Cecum, ileocecal valve, and appendiceal orifice were all normal. Ascending, hepatic, transverse, splenic, descending, sigmoid, rectum, anus, moderate internal hemorrhoids. Patient tolerated the procedure satisfactorily. PLAN: Followup in 5 years.
== END 2024-05-12 14:43 | disposition home or self-care (01) ==
LOC: SDC 09:46
PROVIDERS: ATTEND Surgery
DX: Z12.11 Encounter for screening for malignant neoplasm of colon (principal); K64.8 Other hemorrhoids
CPT/HCPCS: 93005; J2704; J3010